=== PATIENT | male | born 1940 | race Caucasian/White ===

== ENCOUNTER → 2017-02-10 | Outpatient (CLI) | payer MEDICARE ==
--- NOTE | 2017-02-10 14:52 | US ---
EXAMINATION TYPE: US venous doppler duplex LE DATE OF EXAM: 02/10/2017 2:34 PM COMPARISON: NONE CLINICAL HISTORY: Lower Extremity Edema R60.0. SIDE PERFORMED: Bilateral TECHNIQUE: The lower extremity deep venous system is examined utilizing real time linear array sonog deondre with graded compression, doppler sonography and color-flow sonography. VESSELS IMAGED: External Iliac Vein (EIV) Common Femoral Vein Deep Femoral Vein Greater Saphenous Vein * Femoral Vein Popliteal Vein Small Saphenous Vein * Proximal Calf Veins (* superficial vessels) small fluid collection left pop fossa measuring 2.8 x 0.5 x 0.9 cm Right Leg: Negative for DVT Left Leg: Negative for DVT Grayscale, color doppler, spectral doppler imaging performed of the deep veins of the lower extremiti es. There is normal flow, compressibility, vascular waveforms bilaterally. IMPRESSION: No ultrasound evidence for acute DVT in either lower extremity. Small left-sided popli teal cyst noted towards end of exam.
== END | disposition home or self-care (01) ==
LOC: RADUSWWP 13:56
PROVIDERS: ATTEND Family Medicine
DX: M71.22 Synovial cyst of popliteal space [Baker], left knee (principal)
CPT/HCPCS: 93970

== ENCOUNTER → 2017-10-21 | Outpatient (CLI) | payer MEDICARE ==
--- NOTE | 2017-10-21 09:57 | US ---
EXAMINATION TYPE: US duplex aorta DATE OF EXAM: 10/21/2017 COMPARISON: CT CLINICAL HISTORY: Z13.9 screening for disorder. EXAM MEASUREMENTS: Abdominal Aorta: Proximal: 2.2 x 2.1 cm Mid: 1.9 x 1.9 cm Distal: 1.7 x 1.6 cm Bifurcation: rt, 13. x 1.2 cm lt, 1.2 x 1.2 cm normal caliber aorta, calcified distally. IMPRESSION: Atheromatous changes of the distal abdominal aorta without occlusion or abdominal aortic aneurysm.
== END ==
LOC: RADUSWWP 09:22
PROVIDERS: ATTEND Family Medicine
DX: I77.811 Abdominal aortic ectasia (principal)
CPT/HCPCS: 93979

== ENCOUNTER → 2018-11-08 | Outpatient (CLI) | payer MEDICARE ==
--- NOTE | 2018-11-08 11:08 | US ---
EXAMINATION TYPE: US duplex aorta DATE OF EXAM: 11/08/2018 COMPARISON: Prior dated 10/21/2017 CLINICAL HISTORY: I77.811 abdominal aortic ectasia. EXAM MEASUREMENTS: Abdominal Aorta: Proximal: 2.0cm Mid: 1.9cm Distal: 1.2cm Bifurcation: obscured by bowel gas Grayscale, color Doppler, spectral Doppler imaging performed IMPRESSION: No evident abdominal aortic aneurysm. Limitations above.
== END ==
LOC: RADUSWWP 09:08
PROVIDERS: ATTEND Family Medicine
DX: I77.811 Abdominal aortic ectasia (principal)
CPT/HCPCS: 93979

== ENCOUNTER → 2020-10-12 | Outpatient (CLI) | payer MEDICARE ==
--- NOTE | 2020-10-12 12:12 | US ---
EXAMINATION TYPE: US duplex aorta DATE OF EXAM: 10/12/2020 COMPARISON: NONE CLINICAL HISTORY: 80-year-old male I77.811 Abdominal aortic ectasia. TECHNIQUE: Multiple sonographic images of the abdominal aorta are obtained. FINDINGS: EXAM MEASUREMENTS: Abdominal Aorta: Proximal: 1.8 x 2.0cm Mid: 1.5 x 1.6cm Distal: 1.5 x 1.4cm Bifurcation: RT: 1.1 x 1.0cm LT: 1.3 x 1.0cm Internist Medical Doctor Md notes: No evidence of AAA at this time IMPRESSION: No sonographic evidence for AAA.
== END ==
LOC: RADUSWWP 10:13
PROVIDERS: ATTEND Family Medicine
DX: I77.811 Abdominal aortic ectasia (principal)
CPT/HCPCS: 93979